=== PATIENT | male | born 1985 | race Caucasian/White ===

== ENCOUNTER 2024-07-30 06:27 | Day surgery (SDC) | payer BC, SELFPAY | END 2024-07-30 09:04 | disposition home or self-care (01) | LOC: GI 06:27 | PROVIDERS: ATTENDING PHYSICIAN Internal Medicine Gastroenterology | DX: K64.0 First degree hemorrhoids (principal); K52.9 Noninfective gastroenteritis and colitis, unspecified; K63.5 Polyp of colon | CPT/HCPCS: 45380; 88305 ==